=== PATIENT | male | born 1970 | race Caucasian/White ===

== ENCOUNTER → 2021-04-13 | Outpatient (CLI) | payer OTHER ==
--- NOTE | 2021-04-13 15:14 | REP ---
INDICATION: RT KNEE PAIN ? INTERNAL DERRANGEMENT. COMPARISON: None. TECHNIQUE: Sagittal spin-echo proton density, T2 STIR and T2 FLASH. Coronal spin-echo proton density and fat suppressed proton density. Axial fat suppressed proton density. FINDINGS: There is complex grade 3 signal change seen in the posterior horn of the medial meniscus. There is mild grade 2 signal change seen in the anterior horn. The anterior and posterior horns of the lateral meniscus are within normal limits. The anterior and posterior cruciate ligaments are intact. The quadriceps and patellar tendons are intact. The medial and lateral collateral ligaments are intact. There is a gap between the medial meniscus and medial collateral ligament with T2 hyper signal seen within that gap. There is fissuring seen involving the patellar articular cartilage. The medial and lateral patellar retinacula are intact. There is T2 hyper signal seen in the superior apex of Hoffa's fat pad. There is some fissuring seen involving the articular cartilage of the trochlear groove. There is thinning and irregularity of the medial and lateral compartmental articular cartilages. There is no sen joint effusion or Tadeo's cyst. IMPRESSION: 1. There is a complex tear of the posterior horn of the medial meniscus. 2. There is medial meniscocapsular separation with para meniscal cysts in the gap. 3. 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 There is edema in Hoffa's fat pad which could be secondary to either trauma or a patellar tracking deformity. 5. Other findings as described above. <Electronically signed by Bhupinder Cunningham > 04/13/21 0840
== END ==
LOC: M RAD 14:11
PROVIDERS: ATTEND Orthopaedic Surgery
DX: M17.11 Unilateral primary osteoarthritis, right knee (principal)

== ENCOUNTER 2021-11-02 08:47 | Emergency (ER) | payer OTHER ==
[~2021-11-02] VITALS: Ht 180.3 cm; Wt 96.0 kg
[2021-11-02 09:21] LABS: BASO % 0.7 % (0.0-1.0); EOS # 0.1 10^3/uL (0.0-0.5); EOS % 1.6 % (0.0-3.0); HEMATOCRIT 39.2 % (42.0-52.0); LYMPH # 2.4 10^3/uL (1.5-5.0); LYMPH % 41.2 % (24.0-44.0); MEAN CORPUSCULAR HGB CONC 35.7 g/dl (32.0-36.5); MEAN CORPUSCULAR VOLUME 89.5 fl (80.0-96.0); MONO # 0.4 10^3/uL (0.0-0.8); MONO % 7.5 % (2.0-8.0); NEUTROPHILS # 2.8 10^3/uL (1.5-8.5); NEUTROPHILS % 48.8 % (36.0-66.0); PLATELET COUNT, AUTOMATED 217 10^3/uL (150-450); RED BLOOD COUNT 4.38 10^6/uL (4.30-6.10); WHITE BLOOD COUNT 5.7 10^3/uL (4.0-10.0)
[2021-11-02 09:44] LABS: MB/CK RELATIVE INDEX 2.62 (< OR =4)
[2021-11-02 09:45] LABS: ALBUMIN 3.6 GM/DL (3.2-5.2); ALT/SGPT 35 U/L (12-78); BILIRUBIN,DIRECT 0.1 MG/DL (0.0-0.2); BILIRUBIN,TOTAL 0.4 MG/DL (0.2-1.0); BLOOD UREA NITROGEN 15 MG/DL (7-18); CALCIUM LEVEL 8.7 MG/DL (8.5-10.1); CARBON DIOXIDE LEVEL 27 MEQ/L (21-32); CHLORIDE LEVEL 105 MEQ/L (98-107); CREATININE FOR GFR 0.85 MG/DL (0.70-1.30); GLOMERULAR FILTRATION RATE > 60.0 (>60); GLUCOSE, FASTING 228 MG/DL (70-100); LIPASE 75 U/L (73-393); MAGNESIUM LEVEL 1.8 MG/DL (1.8-2.4); POTASSIUM SERUM 4.1 MEQ/L (3.5-5.1); SODIUM LEVEL 137 MEQ/L (136-145); TOTAL PROTEIN 6.2 GM/DL (6.4-8.2)
[2021-11-02] MEDS ORDERED: ISOVUE-370 76% 100ML VIAL As Ordered ONE (10:07)
[2021-11-02 10:56] LABS: CK-MB VALUE MASS 6.9 NG/ML (<3.6); MB/CK RELATIVE INDEX 2.43 (< OR =4)
[2021-11-02 12:46] LABS: CK-MB VALUE MASS 6.4 NG/ML (<3.6); MB/CK RELATIVE INDEX 2.45 (< OR =4)
[2021-11-02 13:29] VITALS: BP 141/80
== END 2021-11-02 14:03 | disposition home or self-care (01) ==
LOC: M ED 08:47 → EDBD 08:47 → M ED 14:03
DX: R07.9 Chest pain, unspecified (principal); R55 Syncope and collapse; E11.9 Type 2 diabetes mellitus without complications; I10 Essential (primary) hypertension; I25.10 Atherosclerotic heart disease of native coronary artery without angina pectoris; F17.200 Nicotine dependence, unspecified, uncomplicated
CPT/HCPCS: 36415; 71045; 71275; 80048; 80076; 82550; 82553; 83690; 83735; 85025; 93005; 93041; 94760; 99285; Q9967

== ENCOUNTER 2023-09-26 07:42 | Emergency (ER) | payer OTHER, SELFPAY ==
[~2023-09-26] VITALS: Ht 177.8 cm; Wt 96.5 kg
[2023-09-26] MEDS ORDERED: BACT800T5 PO (09:54)
[2023-09-26 10:01] VITALS: BP 157/99; TEMP 97.6; O2SAT 98
== END 2023-09-26 10:04 | disposition home or self-care (01) ==
LOC: M ED 07:42
DX: L03.313 Cellulitis of chest wall (principal); E11.9 Type 2 diabetes mellitus without complications; I10 Essential (primary) hypertension; F17.200 Nicotine dependence, unspecified, uncomplicated